=== PATIENT | female | born 1985 | race Caucasian/White ===

== ENCOUNTER → 2018-06-04 | Outpatient (CLI) | payer OTHER ==
[~2018-06-04] MED LIST: CELEXA20 MG PO; CIPRO500 MG PO; IBU-8800 MG PO; OXYCODONE5 M1 PO; PERCOCET 325 MG1 TA2 PO; PNV PRENATAL HE1 TAB; PREDNICOT20 MG PO; PRILOSEC20 MG PO; VALTREX500 MG PO
[2018-06-04 02:05] LABS: BILIRUBIN NEGATIVE (NEGATIVE); BLOOD 3+ (NEGATIVE); CLARITY CLOUDY (CLEAR); COLOR YELLOW (YELLOW); GLUCOSE NEGATIVE (NEGATIVE); KETONE NEGATIVE (NEGATIVE); LEUKO ESTERASE 2+ (NEGATIVE); NITRITE POSITIVE (NEGATIVE); SPECIFIC GRAVITY >= 1.030 (1.005-1.030)
[2018-06-04 02:33] LABS: WBC 41-50 wbc/hpf (0-5)
[2018-06-04 02:34] LABS: BACTERIA 2+; RBC TNTC rbc/hpf (0-2)
== END | disposition home or self-care (01) ==
LOC: LAB 01:50
PROVIDERS: Family Medicine
DX: R35.0 Frequency of micturition (principal)

== ENCOUNTER → 2020-06-19 | Outpatient (CLI) | payer OTHER | END | disposition home or self-care (01) | LOC: US 13:21 | PROVIDERS: ATTEND Nurse Practitioner Family | DX: E04.9 Nontoxic goiter, unspecified (principal) ==